=== PATIENT | female | born 1945 | race Caucasian/White ===

== ENCOUNTER 2023-08-22 22:58 | Emergency (ER) | payer MEDICARE, OTHER ==
[2023-08-22 23:38] LABS: #Eosinphils 0.1 thou/uL (0.0-0.7); #Neutrophils 6.4 thou/uL (1.40-6.50); %Basophils 0.3 % (0.0-1.0); %Eosinophils 1.5 % (0.0-10.0); %Lymphocytes 19.2 % (21.0-51.0); %Monocytes 10.4 % (0.0-10.0); %Neutrophils 68.4 % (42.0-75.0); Hematocrit 42.7 % (36.0-47.0); Hemoglobin 15.3 g/dL (12.0-16.0); Mean Corpuscular HGB CONC 35.8 g/dL (32.0-36.0); Mean Corpuscular Volume 89.3 fl (78.0-98.0); Mean Platelet Volume 9.7 fL (7.4-10.4); Platelet Count 343 10x3/uL (130-400); RBC Distribution Width 11.3 % (11.5-14.5); Red Blood Cell (RBC) Count 4.78 mill/uL (4.20-5.40); White Blood Cell (WBC) Count 9.4 10x3/uL (4.8-10.8)
[2023-08-23 00:08] LABS: ALT (SGPT) 12 U/L (8-55); AST (SGOT) 17 U/L (5-34); Albumin 4.5 g/dL (3.4-4.8); Alkaline Phosphatase 102 U/L (40-110); Anion Gap 15 mmol/L (10-20); BUN (Urea Nitrogen) 14 mg/dL (9.8-20.1); Bilirubin, Total 0.8 mg/dL (0.2-1.2); Calc. Creatinine Clearance 0 mL/min (70-130); Calcium 9.2 mg/dL (7.8-10.44); Carbon Dioxide 27 mmol/L (23-31); Chloride 101 mmol/L (98-107); Estimated GFR 86; Globulin 3.4 g/dL (2.4-3.5); Glucose 125 mg/dL (83-110); Lipase 20 U/L (8-78); Magnesium 2.1 mg/dL (1.6-2.6); Potassium 3.7 mmol/L (3.5-5.1); Protein, Total 7.9 g/dL (5.8-8.1); Sodium 139 mmol/L (136-145)
[2023-08-23 00:09] LABS: Troponin I 0.011 ng/mL (< 0.028)
[2023-08-23] MEDS ORDERED: Sucralfate 1 GM/10 ML UDCUP ONE (00:23)
[2023-08-23 00:32] LABS: Bacteria/HPF None Seen HPF (None Seen); Bilirubin Negative (Negative); Blood, Urine Negative (Negative); CAUTI Indications for Culture Dysuria,urgency,freq; Clarity Turbid (Clear); Glucose, Urine (Dipstick) Normal (Negative); Ketone, Urine 10 mg/dL (Negative); Leukocyte Negative Leu/uL (Negative); Nitrite Negative (Negative); Protein, Urine (Dipstick) 20 mg/dL (Neg-Trace); RBC/HPF 0-3 HPF (0-3); Specific Gravity, Urine 1.021 (1.002-1.036); Urobilinogen Normal mg/dL (Less than 2)
[2023-08-23 00:35] LABS: Urine Culture Reflex No No
[2023-08-23] MEDS ORDERED: Pantoprazole 40 MG VIAL ONE (01:24)
[2023-08-23 03:49] LABS: Troponin I Less than 0.010 ng/mL (< 0.028)
[2023-08-23] MEDS ORDERED: Iopamidol 370 76% 100 ML VIAL ONE (11:49)
[2023-08-23 22:35] LABS: Campy jejuni + coli by PCR Negative (Negative); STEC Shiga Toxin 1+2 Negative (Negative); Salmonella spp. by PCR Negative (Negative); Shigella spp + EIEC by PCR Negative (Negative)
== END 2023-08-23 04:41 | disposition home or self-care (01) ==
LOC: ERS 22:58
DX: R19.7 Diarrhea, unspecified (principal); R10.13 Epigastric pain; J44.9 Chronic obstructive pulmonary disease, unspecified; I10 Essential (primary) hypertension; Z87.891 Personal history of nicotine dependence
CPT/HCPCS: 36415; 71045; 71275; 80053; 81001; 83690; 83735; 83880; 84484; 85025; 87324; 87449; 87493; 87505; 93005; 96361; 96374; C9113; Q9967

== ENCOUNTER 2024-03-26 21:31 | Emergency (ER) | payer MEDICARE | END 2024-03-26 23:49 | disposition home or self-care (01) | LOC: ERS 21:31 | DX: S61.451A Open bite of right hand, initial encounter (principal); S61.411A Laceration without foreign body of right hand, initial encounter; I10 Essential (primary) hypertension; W54.0XXA Bitten by dog, initial encounter; Y93.89 Activity, other specified; Z23 Encounter for immunization; Z87.891 Personal history of nicotine dependence; Z55.0 Illiteracy and low-level literacy | CPT/HCPCS: 90471; 90715 ==